=== PATIENT | female | born 1995 | race African-American/Black ===

== ENCOUNTER 2017-05-30 23:20 | Emergency (ER) | payer OTHER ==
[~2017-05-30] VITALS: Ht 170.2 cm; Wt 92.3 kg
[~2017-05-30 23:20] MED LIST: LO LOESTRIN FE1 EACH PO; TESSALON200 MG PO
[2017-05-30 23:50] VITALS: BP 132/78
== END 2017-05-31 02:22 | disposition home or self-care (01) ==
LOC: EXP 23:20 → EME 23:20 → EXP 05-31 02:22
PROC: 2W3TX1Z Immobilization of Left Foot using Splint (ICD-10-PCS; principal; 2017-05-30)
DX: S93.602A Unspecified sprain of left foot, initial encounter (principal); W17.81XA Fall down embankment (hill), initial encounter
CPT/HCPCS: 73610; 73630; 99281; 99284

== ENCOUNTER 2017-10-17 15:11 | Emergency (ER) | payer OTHER ==
[~2017-10-17] VITALS: Ht 170.2 cm; Wt 83.0 kg
[2017-10-17 16:13] LABS: HEMATOCRIT 35.8 % (36.0-46.0); HEMOGLOBIN 12.6 G/DL (11.9-15.5); MCHC 35.2 G/DL (30.0-36.0); MCV 71.2 FL (83-99); RBC DIS.WIDTH-CV 14.8 % (11.8-14.6); RBC DIS.WIDTH-SD 37.6 % (39-53); RED BLOOD COUNT 5.03 M/uL (3.80-5.20); WHITE BLOOD COUNT 7.7 K/uL (4.1-10.2)
[2017-10-17 16:19] LABS: ALBUMIN 4.6 g/dL (3.2-4.8); CHLORIDE 106 mEq/L (99-109); POTASSIUM 4.1 mEq/L (3.7-5.4); SODIUM 140 mEq/L (136-147)
[2017-10-17 16:22] LABS: GLUCOSE 107 mg/dL (70-99); TOTAL PROTEIN 7.3 g/dL (6.4-8.3)
[2017-10-17 16:23] LABS: TOTAL BILIRUBIN 1.1 mg/dL (0.0-1.0)
[2017-10-17 16:25] LABS: ALKALINE PHOSPHATASE 76 IU/L (3-129); CREATININE 0.7 mg/dL (0.6-1.3); GFR ESTIMATE (CALCULATED) > 59 mL/min/
[2017-10-17 16:26] LABS: UREA NITROGEN (BUN) 10 mg/dL (9-23)
[2017-10-17 16:27] LABS: AST (GOT) 18 IU/L (2-34)
[2017-10-17 16:28] LABS: ALT (GPT) 12 IU/L (3-49)
[2017-10-17 16:35] LABS: QUANTITATIVE HCG < 4.0 MIU/ML
[2017-10-17 16:54] LABS: HEMATOLOGY COMMENT 1 SN; PLAT.SUFFICIENCY ADEQUATE; PLATELET COUNT 249 K/uL (156-360)
[2017-10-17 17:42] LABS: APPEARANCE CLOUDY ((CLEAR)); BILIRUBIN NEGATIVE; BLOOD NEGATIVE; GLUCOSE (STRIP) NEGATIVE; KETONES 5; LEUKOCYTES LARGE; NITRITE NEGATIVE; PROTEIN (STRIP) 30; SPECIFIC GRAVITY 1.029 (1.000-1.030)
[2017-10-17 18:04] LABS: BACTERIA RARE /HPF; COLOR AMBER ((YELLOW)); EPITHELIAL CELLS 3+ /HPF; MUCUS 4+ /LPF; UCUL ADDED? YES
[2017-10-17] MEDS ORDERED: MOTRIN600 MG PO (19:38)
[2017-10-17] MEDS ORDERED: ZOFRAN ODT8 MG PO (19:44)
[2017-10-17 19:45] VITALS: BP 107/62
== END 2017-10-17 19:45 | disposition home or self-care (01) ==
LOC: EME 15:11
DX: R10.2 Pelvic and perineal pain (principal); J45.909 Unspecified asthma, uncomplicated; F17.200 Nicotine dependence, unspecified, uncomplicated
CPT/HCPCS: 76856; 80053; 81003; 84702; 85027; 87086; 99281; 99284

== ENCOUNTER 2018-05-29 23:41 | Emergency (ER) | payer SELFPAY ==
[~2018-05-29] VITALS: Ht 170.2 cm; Wt 90.9 kg
[~2018-05-29 23:41] MED LIST changes: +MOTRIN600 MG PO; +ZOFRAN ODT8 MG PO
[2018-05-30 00:45] LABS: ALBUMIN 3.9 g/dL (3.2-4.8)
[2018-05-30 00:46] LABS: CHLORIDE 108 mEq/L (99-109); SODIUM 139 mEq/L (136-147)
[2018-05-30 00:48] LABS: GLUCOSE 101 mg/dL (70-99); TOTAL PROTEIN 6.5 g/dL (6.4-8.3)
[2018-05-30 00:50] LABS: TOTAL BILIRUBIN 0.5 mg/dL (0.0-1.0)
[2018-05-30 00:51] LABS: ALKALINE PHOSPHATASE 58 IU/L (3-129)
[2018-05-30 00:52] LABS: CREATININE 0.7 mg/dL (0.6-1.3); GFR ESTIMATE (CALCULATED) > 59 mL/min/
[2018-05-30 00:53] LABS: AST (GOT) 16 IU/L (2-34); UREA NITROGEN (BUN) 18 mg/dL (9-23)
[2018-05-30 00:54] LABS: ALT (GPT) 14 IU/L (3-49)
[2018-05-30 00:55] LABS: LIPASE 23 U/L (1.0-51.0)
[2018-05-30 00:58] LABS: BASOPHIL (%) 0.5 % (0-1); BASOPHIL COUNT 0.1 K/uL (0-0.1); EOSINOPHIL (%) 1.2 % (0-5); EOSINOPHIL COUNT 0.1 K/uL (0-0.3); HEMATOCRIT 31.9 % (36.0-46.0); HEMOGLOBIN 11.2 G/DL (11.9-15.5); IMMATURE GRANULOCYTE (%) 0.5 % (0.0-0.7); LYMPHOCYTE (%) 25.4 % (15-42); LYMPHOCYTE COUNT 2.7 K/uL (1.0-2.8); MCH 24.9 PG (29.0-34.0); MCHC 35.1 G/DL (30.0-36.0); MCV 70.9 FL (83-99); MONOCYTE (%) 8.4 % (3-12); MONOCYTE COUNT 0.9 K/uL (0-0.8); NEUTROPHIL COUNT 6.9 K/uL (1.8-6.4); PLATELET COUNT 199 K/uL (156-360); RBC DIS.WIDTH-CV 14.4 % (11.8-14.6); RBC DIS.WIDTH-SD 36.5 % (39-53); WHITE BLOOD COUNT 10.8 K/uL (4.1-10.2)
[2018-05-30 01:00] LABS: QUANTITATIVE HCG < 4.0 MIU/ML
[2018-05-30 02:38] LABS: APPEARANCE CLEAR ((CLEAR)); BILIRUBIN NEGATIVE; BLOOD NEGATIVE; COLOR YELLOW ((YELLOW)); GLUCOSE (STRIP) NEGATIVE; KETONES NEGATIVE; LEUKOCYTES TRACE; NITRITE NEGATIVE; PROTEIN (STRIP) NEGATIVE; SPECIFIC GRAVITY 1.028 (1.000-1.030)
[2018-05-30 02:58] LABS: BACTERIA NONE SEEN /HPF; EPITHELIAL CELLS RARE /HPF; MUCUS NONE SEEN /LPF; RED BLOOD CELLS 0-5 /HPF (0-5); UCUL ADDED? NO; WHITE BLOOD CELLS 0-5 /HPF (0-5)
[2018-05-30] MEDS ORDERED: CARAFATE1 GM PO (04:59)
[2018-05-30] MEDS ORDERED: ZOFRAN4 MG PO (04:59)
[2018-05-30] MEDS ORDERED: KEFLEX500 MG PO (05:01)
[2018-05-30 05:54] VITALS: BP 111/71
== END 2018-05-30 06:02 | disposition home or self-care (01) ==
LOC: EME 23:41
PROVIDERS: Emergency Medicine
DX: N39.0 Urinary tract infection, site not specified (principal); J45.909 Unspecified asthma, uncomplicated; Z87.891 Personal history of nicotine dependence; Z91.010 Allergy to peanuts; Z91.018 Allergy to other foods
CPT/HCPCS: 74177; 80053; 81003; 83690; 84702; 85025; 99281; 99285; J2405; J3010